=== PATIENT | male | born 1955 | race Caucasian/White ===

== ENCOUNTER 2017-08-22 13:59 | Emergency (ER) | payer MEDICARE ==
[2017-08-22 16:44] LABS: BASO % 0.5 % (0.0-1.0); EOS # 0.2 10^3/uL (0.0-0.50); EOS % 2.4 % (0.0-3.0); HEMATOCRIT 37.6 % (42.0-52.0); IMMATURE GRANULOCYTE % 0.5 % (0-0); LYMPH # 1.3 10^3/uL (1.5-4.5); LYMPH % 14.9 % (24.0-44.0); MEAN CORPUSCULAR HEMOGLOBIN 31.1 pg (27.0-33.0); MEAN CORPUSCULAR HGB CONC 34.6 g/dl (32.0-36.5); MONO # 0.7 10^3/uL (0.0-0.8); MONO % 8.5 % (0.0-5.0); NEUTROPHILS # 6.4 10^3/uL (1.8-7.7); NEUTROPHILS % 73.2 % (36.0-66.0); PLATELET COUNT, AUTOMATED 209 10^3/uL (150-450); RED BLOOD COUNT 4.18 10^6/uL (4.30-6.10); RED CELL DISTRIBUTION WIDTH 12.6 % (11.5-14.5); WHITE BLOOD COUNT 8.7 10^3/uL (4.0-10.0)
[2017-08-22 16:48] LABS: KETONE, URINE AUTO RFX NEGATIVE (NEGATIVE); LEUKOCYTE ESTERASE UR AUTO RFX TRACE (NEGATIVE); MUCUS, URINE RFX SMALL (NEGATIVE); NITRITE, URINE AUTO RFX NEGATIVE (NEGATIVE); RBC, URINE AUTO RFX 137 /HPF (0-3); SPECIFIC GRAVITY UR AUTO RFX 1.009 (1.002-1.035); SQUAM EPITHELIAL CELL UR AURFX 0 /HPF (0-6); WBC, URINE AUTO RFX 16 /HPF (0-3)
[2017-08-22 17:11] LABS: INR 0.96; PROTHROMBIN TIME 12.8 SECONDS (12.4-14.5)
[2017-08-22 17:13] LABS: ALBUMIN 3.7 GM/DL (3.2-5.2); ALBUMIN/GLOBULIN RATIO 1.16 (1.00-1.93); ALKALINE PHOSPHATASE 127 U/L (45-117); ALT/SGPT 45 U/L (12-78); AMYLASE 73 U/L (25-115); ANION GAP 10 MEQ/L (8-16); AST/SGOT 32 U/L (7-37); BILIRUBIN,DIRECT 0.1 MG/DL (0.0-0.2); BILIRUBIN,TOTAL 0.5 MG/DL (0.2-1.0); BLOOD UREA NITROGEN 28 MG/DL (7-18); CALCIUM LEVEL 9.1 MG/DL (8.8-10.2); CARBON DIOXIDE LEVEL 26 MEQ/L (21-32); CHLORIDE LEVEL 107 MEQ/L (98-107); CK-MB VALUE MASS 3.6 NG/ML (0.0-3.6); CPK CREATINE PHOSPHOKINASE 187 U/L (39-308); CREATININE FOR GFR 2.11 MG/DL (0.70-1.30); GLOMERULAR FILTRATION RATE 33.9 (>49); GLUCOSE, FASTING 130 MG/DL (80-110); LIPASE 143 U/L (73-393); MB/CK RELATIVE INDEX 1.92 (< OR =4); POTASSIUM SERUM 4.6 MEQ/L (3.5-5.1); SODIUM LEVEL 143 MEQ/L (136-145); TOTAL PROTEIN 6.9 GM/DL (6.4-8.2); TROPONIN I 0.02 NG/ML (< 0.10)
== END 2017-08-22 17:50 | disposition home or self-care (01) ==
LOC: M ED 13:59
DX: N28.9 Disorder of kidney and ureter, unspecified (principal); I10 Essential (primary) hypertension; E78.4 Other hyperlipidemia; Z85.038 Personal history of other malignant neoplasm of large intestine; Z87.891 Personal history of nicotine dependence
CPT/HCPCS: 71046

== ENCOUNTER → 2017-08-24 | Outpatient (REF) | payer MEDICARE ==
[2017-08-24 20:36] LABS: AMORPHOUS SEDIMENT, URINE MOD AMOUNT (NEGATIVE); BACTERIA, URINE SMALL AMOUNT; HYALINE CAST, URINE NONE SEEN /lpf (0-1); MUCUS, URINE SMALL AMOUNT (NEGATIVE); RBC, URINE TNTC /hpf (0-3); SQUAMOUS EPITHELIAL CELL URINE MOD AMOUNT /hpf (SMALL AMT); WBC, URINE 30-40 /hpf (0-3)
[2017-08-24 20:37] LABS: MICROSCOPIC EXAM PERFORMED
[2017-08-24 20:44] LABS: TOTAL PROTEIN 7.4 GM/DL (6.4-8.2)
[2017-08-24 21:09] LABS: CREATININE,RANDOM URINE 97.2 MG/DL; TOTAL PROTEIN,RANDOM URINE 107.1 MG/DL (0.0-12.0)
[2017-08-25 17:32] LABS: HEPATITIS B SURFACE ANTIGEN NEGATIVE (NEGATIVE)
[2017-08-25 17:57] LABS: HEPATITIS C VIRUS ABY INDEX 0.1 INDEX (<0.8)
[2017-08-28 12:20] LABS: ALBUMIN 4.31 GM/DL (3.29-5.55); ALBUMIN % 58.2 % (55.8-66.1); ALPHA-1-GLOBULIN % 4.3 % (2.9-4.9); ALPHA-1-GLOBULINS 0.32 GM/DL (0.17-0.41); ALPHA-2-GLOBULINS 0.81 GM/DL (0.42-0.99); BETA-1-GLOBULINS % 6.8 % (4.7-7.2); BETA-2-GLOBULINS 0.38 GM/DL (0.19-0.55); BETA-2-GLOBULINS % 5.2 % (3.2-6.5); GAMMA GLOBULIN % 14.5 % (11.1-18.8); GAMMA GLOBULINS 1.07 GM/DL (0.65-1.58)
[2017-08-30 00:08] LABS: ANCA-ATYPICAL <1:20 titer (Neg:<1:20); ANTI DOUBLE STRAND-DNA AB 1 IU/mL (0-9); ANTINUCLEAR ANTIBODIES DIRECT Negative (Negative); CYTOPLASMIC NEUTROP AB ANCA-C <1:20 titer (Neg:<1:20); FREE KAPPA LIGHT CHAINS SERUM 44.5 mg/L (3.3-19.4); FREE LAMBDA LIGHT CHAINS SERUM 22.7 mg/L (5.7-26.3); KAPPA/LAMBDA RATIO SERUM 1.96 (0.26-1.65); PERINUCLEAR AB ANCA-P <1:20 titer (Neg:<1:20)
== END ==
LOC: M LAB REF 18:27
DX: R31.9 Hematuria, unspecified (principal); R80.9 Proteinuria, unspecified
CPT/HCPCS: 84165

== ENCOUNTER → 2017-09-19 | Outpatient (REF) | payer MEDICARE ==
[2017-09-19 19:58] LABS: IMMUNOGLOBULIN G 1080 MG/DL (681-1648)
[2017-09-22 00:06] LABS: FREE KAPPA LIGHT CHAINS SERUM 50.3 mg/L (3.3-19.4); FREE LAMBDA LIGHT CHAINS SERUM 21.9 mg/L (5.7-26.3)
== END ==
LOC: M LAB REF 18:33
DX: D47.2 Monoclonal gammopathy (principal)
CPT/HCPCS: 82784

== ENCOUNTER → 2017-09-21 | Outpatient (REF) | payer MEDICARE | LOC: M LAB REF 12:55 | DX: D47.2 Monoclonal gammopathy (principal); D64.9 Anemia, unspecified ==

== ENCOUNTER → 2017-09-21 | Outpatient (CLI) | payer MEDICARE ==
[2017-09-21 10:10] LABS: URINE VOLUME 3000 ML
[2017-09-21 10:46] LABS: TOTAL PROTEIN,RANDOM URINE 51.1 MG/DL (0.0-12.0); URINE TOTAL PROTEIN 51.1 MG/DL (0-12)
[2017-09-27 13:52] LABS: UPEP INTERPRETATION NO M-SPIKE NOTED
== END ==
LOC: M LAB 08:49
DX: D47.2 Monoclonal gammopathy (principal); D50.8 Other iron deficiency anemias; Z98.1 Arthrodesis status; Z96.653 Presence of artificial knee joint, bilateral; Z98.890 Other specified postprocedural states
CPT/HCPCS: 77075

== ENCOUNTER → 2017-10-16 | Outpatient (CLI) | payer MEDICARE | LOC: M RAD 08:56 | DX: D64.9 Anemia, unspecified (principal) | CPT/HCPCS: 78306 ==

== ENCOUNTER → 2017-10-23 | Outpatient (REF) | payer MEDICARE | LOC: M LAB REF 13:13 | DX: N39.0 Urinary tract infection, site not specified (principal) | CPT/HCPCS: 87088; 87186 ==

== ENCOUNTER → 2018-02-06 | Outpatient (REF) | payer MEDICARE | LOC: M LAB REF 12:49 | DX: N39.0 Urinary tract infection, site not specified (principal) | CPT/HCPCS: 87186 ==

== ENCOUNTER → 2018-05-21 | Outpatient (REF) | payer MEDICARE ==
[2018-05-21 18:25] LABS: PSA SCREENING 0.95 NG/ML (< 4.0)
== END ==
LOC: M LAB REF 17:24
DX: R31.9 Hematuria, unspecified (principal); Z12.5 Encounter for screening for malignant neoplasm of prostate
CPT/HCPCS: G0103

== ENCOUNTER → 2018-05-28 | Outpatient (CLI) | payer MEDICARE ==
[~2018-05-28] MED LIST: ISOVUE-370 76% 100ML VIAL (Q9967) As Ordered
== END ==
LOC: M RAD 08:23
DX: R80.9 Proteinuria, unspecified (principal); N18.3 Chronic kidney disease, stage 3 (moderate); R31.9 Hematuria, unspecified
CPT/HCPCS: Q9967

== ENCOUNTER → 2019-11-21 | Outpatient (CLI) | payer MEDICARE ==
[~2019-11-21] MED LIST changes: +AMIT150T PO; +AMLO10TA5 PO; +CARV6.25 OR; +CEFP200T PO; +CLON0.5T2 PO; +CYCL10TA PO; +GABA-843 PO; +HYDR-3653 PO; -ISOVUE-370 76% 100ML VIAL (Q9967) As Ordered; +LIDO1PAD; +LISI-542 OR; +OMEP40CA97 PO; +OXYC-517 PO; +ULOR80TA PO
--- NOTE | 2019-11-21 10:51 | REP ---
RENAL ULTRASOUND: Real-time sonographic evaluation of the kidneys performed. Kidneys are normal in size and echotexture, right kidney measuring 11.7 x 6.5 x 6.6 cm and left kidney 11.3 x 6.5 x 7.4 cm. There is no hydronephrosis bilaterally. There is a cyst of the mid right kidney laterally. This was seen in prior CT of 05/28/2018. It measures 3.8 x 2.7 x 3.0 cm. There are a few thin internal septations with no soft tissue nodules internally. Two cysts are seen of the left kidney, one superiorly measuring 2.1 x 1.9 x 1.9 cm and one in the mid aspect 1.4 x 1.4 x 1.9 cm. Urinary bladder is mildly distended and grossly unremarkable. Ureteral jets are not seen with Doppler color evaluation. IMPRESSION: Bilateral renal cysts as discussed in detail above. Electronically Signed by Tim Aragon MD 11/21/2019 12:00 P
== END ==
LOC: M RAD 09:42
PROVIDERS: ATTEND Internal Medicine Nephrology
DX: N18.3 Chronic kidney disease, stage 3 (moderate) (principal); N28.1 Cyst of kidney, acquired; I12.9 Hypertensive chronic kidney disease with stage 1 through stage 4 chronic kidney disease, or unspecified chronic kidney disease

== ENCOUNTER → 2021-01-21 | Outpatient (REF) | payer MEDICARE ==
[~2021-01-21] MED LIST changes: -AMLO10TA5 PO; +AMLO1TAB25 PO; +CYCL-707 PO; -CYCL10TA PO; +GABA-282 PO; -GABA-843 PO; -HYDR-3653 PO; +HYDR8TAB PO; -LISI-542 OR; +LISI-898 OR; +OMEP40CA4 PO; -OMEP40CA97 PO
[2021-01-21 11:12] LABS: BASO % 0.3 % (0.0-1.0); EOS # 0.2 10^3/uL (0.0-0.5); EOS % 3.7 % (0.0-3.0); HEMATOCRIT 38.8 % (42.0-52.0); HEMOGLOBIN 11.9 g/dl (13.5-17.5); LYMPH # 1.3 10^3/uL (1.5-5.0); LYMPH % 19.9 % (24.0-44.0); MEAN CORPUSCULAR HEMOGLOBIN 29.6 pg (27.0-33.0); MEAN CORPUSCULAR HGB CONC 30.7 g/dl (32.0-36.5); MEAN CORPUSCULAR VOLUME 96.5 fl (80.0-96.0); MONO # 0.6 10^3/uL (0.0-0.8); MONO % 8.5 % (2.0-8.0); NEUTROPHILS # 4.3 10^3/uL (1.5-8.5); NEUTROPHILS % 67.1 % (36.0-66.0); PLATELET COUNT, AUTOMATED 241 10^3/uL (150-450); RED BLOOD COUNT 4.02 10^6/uL (4.30-6.10); WHITE BLOOD COUNT 6.4 10^3/uL (4.0-10.0)
[2021-01-21 11:32] LABS: ERYTHROCYTE SEDIMENTATION RATE 35 mm/hr (0-20)
== END ==
LOC: M SFHCPLAZ 08:02
PROVIDERS: ATTEND Internal Medicine Infectious Disease
DX: A49.01 Methicillin susceptible Staphylococcus aureus infection, unspecified site (principal)
CPT/HCPCS: 36415; 85025; 85652; 86140; G0463

== ENCOUNTER → 2021-02-25 | Outpatient (REF) | payer MEDICARE | LOC: M LAB REF 17:25 | PROVIDERS: ATTEND Internal Medicine Nephrology | DX: I12.9 Hypertensive chronic kidney disease with stage 1 through stage 4 chronic kidney disease, or unspecified chronic kidney disease (principal); N18.9 Chronic kidney disease, unspecified ==